=== PATIENT | male | born 1985 | race African-American/Black ===

== ENCOUNTER 2017-05-19 05:19 | Emergency (ER) | payer BC, OTHER ==
[~2017-05-19] VITALS: Ht 182.9 cm; Wt 106.6 kg
--- NOTE | ~2017-05-19 | CR72 ---
[facility] A Service of [facility] & [facility] / [facility] RADIOLOGY TEXT RESULTS PATIENT: JAZMYN ADAME LOCATION: [facility] : 83 UNIT #: [id number] AGE: [address]: Spenser Huynh MD SEX: M ORDER DR: [id number] [facility] [address] [place], [place] [address] [id number] MR#: [id number] Acc #: [id number] NAME: JAZMYN ADAME. : 1985 SEX: M STUDY DATE/TIME: 05/19/2017 6:21 UNIT: [facility] ROOM: STUDY DESCRIPTION: CR Chest Single View Portable Attending Physician: Spenser Huynh M.D. Ordering Physician: Spenser Huynh M.D. Primary Care Physician: Tiffany Bell M.D. MEDICAL IMAGING REPORT This report is preliminary unless electronic signature is present EXAM Portable chest, 05/19/17 HISTORY Mid chest pain, fever, nausea and vomiting beginning last night. FINDINGS A single AP portable view of the chest shows both lungs to be clear. The heart is normal in size. The mediastinal contour is normal. No significant bone abnormalities are seen. IMPRESSION Normal portable chest. Dictated by... Salvador Ann M.D. THIS IS AN ELECTRONICALLY VERIFIED REPORT Salvador Ann M.D. at 05/20/2017 6:31 AM MOLLY/akbar TD: 05/19/2017 21:28 JOB #: [id number] MEDICAL IMAGING REPORT Page 1 of 1 COPY
[~2017-05-19 05:19] MED LIST: FLEXERIL PO; KETOPROFEN PO
[2017-05-19 06:33] LABS: INFLUENZA A NEG (NEG); INFLUENZA B NEG (NEG)
[2017-05-19 06:54] LABS: BASOPHIL% 0.1 % (0-2.5); EOSINOPHIL% 0.1 % (0.0-7.0); HEMATOCRIT 40.9 % (38.0-50.0); LYMPHOCYTE# 0.6 X10e3 (1.0-3.5); LYMPHOCYTE% 7.4 % (17.0-45.0); MEAN CELL VOLUME 83.7 FL (83-96); MEAN CORPUSCULAR HEMOGLOBIN 28.6 PG (28-34); MEAN CORPUSCULAR HGB CONC 34.2 g/dL (30-36); MEAN PLATELET VOLUME 7.9 FL (6.5-11.5); MONOCYTE# 0.5 X10e3 (0-1.0); MONOCYTE% 5.9 % (3.0-12.0); NEUTROPHIL# 7.2 X10e3 (1.5-7.1); NEUTROPHIL% 86.5 % (40-75); PLATELET COUNT 256 X10e3 (140-420); RED BLOOD COUNT 4.88 X10e (3.90-5.60); RED CELL DISTRIBUTION WIDTH 13.6 % (11.0-15.5); WHITE BLOOD COUNT 8.4 X10e3 (4.0-10.5)
[2017-05-19 06:57] LABS: DIFF IND NO
[2017-05-19 07:14] LABS: ALBUMIN SERUM 4.3 g/dL (3.5-5.0); BILIRUBIN, DIRECT 0.1 mg/dL (0.0-0.2); BILIRUBIN,INDIRECT 0.4 mg/dL (0.0-0.9); BILIRUBIN,TOTAL 0.5 mg/dL (0.2-2.0); BUN/CREATININE RATIO 11.53; CALCIUM SERUM 9.1 mg/dL (8.4-10.2); CREATININE SERUM 1.3 mg/dL (0.6-1.4); GLOM FILT RATE Estimated 83.7 mL/min (>60); POTASSIUM 3.6 mmol/L (3.5-5.1); PROTEIN TOTAL SERUM 7.8 g/dL (6.0-8.3)
== END 2017-05-19 07:30 | disposition home or self-care (01) ==
LOC: CED 05:19
PROVIDERS: Emergency Medicine
DX: B34.9 Viral infection, unspecified (principal); J45.909 Unspecified asthma, uncomplicated; Z79.899 Other long term (current) drug therapy
CPT/HCPCS: 36415; 71010; 80048; 80076; 83690; 85025; 87804; 96361; 96374; 96375; 99284; J1885; J2405